=== PATIENT | female | born 1960 | race African-American/Black ===

== ENCOUNTER 2018-05-26 10:15 | Inpatient (IN) | payer OTHER ==
[~2018-05-26] VITALS: Ht 160 cm; Wt 72.1 kg
[2018-05-26] MEDS ORDERED: ONDANSETRON HCL 4MG/2ML INJ IV STA (10:25)
[2018-05-26] MEDS ORDERED: VISCOUS LIDOCAINE 2% 15 ML UDC PO ONE (10:30)
[2018-05-26] MEDS ORDERED: ASPIRIN 81MG TABLET PO ONE (10:30)
[2018-05-26] MEDS ORDERED: MAGNESIUM/ALUMINUM HYDROXIDE/SIMETHICONE 30ML UDC PO ONE (10:30)
[2018-05-26 11:18] LABS: BASOPHILS % 0.8 % (0.0-2.0); EOSINOPHILS % 1.1 % (0.0-5.0); HEMATOCRIT. 39.7 % (36.0-48.0); LYMPHOCYTES % 13.3 % (20.0-50.0); MEAN CORPUSCULAR VOLUME 91.4 fL (81.0-99.0); MEAN PLATELET VOLUME 8.4 fl (7.4-10.4); MONOCYTES % 6.4 % (2.0-8.0); NEUTROPHILS % 78.4 % (40.0-76.0); PLATELET 246 x1000/uL (130-400); RED BLOOD CELL COUNT 4.35 mill/uL (4.2-5.4); RED CELL DISTRIBUTION WIDTH 15.5 % (11.6-14.6)
[2018-05-26 11:22] LABS: CHLORIDE 94 mEq/L (98-107)
[2018-05-26] MEDS ORDERED: ACETAMINOPHEN 325MG TABLET PO PRN (13:30)
[2018-05-26] MEDS ORDERED: MAGNESIUM/ALUMINUM HYDROXIDE/SIMETHICONE 30ML UDC PO PRN (13:30)
[2018-05-26] MEDS ORDERED: ACETAMINOPHEN 650MG SUPP PR PRN (13:30)
[2018-05-26] MEDS ORDERED: DIPHENHYDRAMINE 50MG/ML VIAL IV PRN (13:30)
[2018-05-26] MEDS ORDERED: CLONIDINE 0.1MG TABLET PO PRN (13:30)
[2018-05-26] MEDS ORDERED: LORAZEPAM 0.5MG TABLET PO PRN (13:30)
[2018-05-26] MEDS ORDERED: GUAIFENESIN 200MG/10ML SUGAR FREE UDC PO PRN (13:30)
[2018-05-26] MEDS ORDERED: DOCUSATE SODIUM 100MG CAPSULE PO PRN (13:30)
[2018-05-26] MEDS ORDERED: ONDANSETRON HCL 4MG/2ML INJ IV PRN (13:30)
[2018-05-26] MEDS ORDERED: HYDROCODONE/ACETAMINOPHEN 5/325MG TABLET PO PRN (13:30)
[2018-05-26] MEDS ORDERED: IPRATROPIUM/ALBUTEROL 0.5-3(2.5)MG/3ML NEB INH PRN (13:30)
[2018-05-26 14:48] VITALS: BP 157/85
[2018-05-26] MEDS ORDERED: CARV6.2548 MT (17:33)
[2018-05-26] MEDS ORDERED: LISI40TA4 MT (17:33)
[2018-05-26] MEDS ORDERED: SUCR500T MT (17:34)
[2018-05-26 19:48] LABS: CREATINE KINASE 83 IU/L (26-192)
[2018-05-26 19:49] LABS: CREATINE KINASE MB FRACTION < 1.0 ng/mL (0.5-3.6)
[2018-05-26 20:00] VITALS: BP 129/83
[2018-05-26] MEDS: HEPARIN 5000 UNITS/ML VIAL SUBCUT SCH (20:14)
[2018-05-26 23:29] LABS: CREATINE KINASE 78 IU/L (26-192)
[2018-05-26 23:30] LABS: CREATINE KINASE MB FRACTION < 1.0 ng/mL (0.5-3.6)
[2018-05-27] VITALS (7 sets, daily range): BP systolic 107–163; BP diastolic 54–104
[2018-05-27 06:37] LABS: BASOPHILS % 0.6 % (0.0-2.0); CHLORIDE 94 mEq/L (98-107); EOSINOPHILS % 1.7 % (0.0-5.0); HEMOGLOBIN. 12.1 g/dL (12.0-16.0); LYMPHOCYTES % 20.2 % (20.0-50.0); MEAN CORPUSCULAR HEMOGLOBIN 30.2 pg (28.0-32.0); MEAN CORPUSCULAR VOLUME 92.2 fL (81.0-99.0); MONOCYTES % 7.8 % (2.0-8.0); NEUTROPHILS % 69.7 % (40.0-76.0); PLATELET 223 x1000/uL (130-400); RED BLOOD CELL COUNT 4.01 mill/uL (4.2-5.4); RED CELL DISTRIBUTION WIDTH 15.2 % (11.6-14.6)
[2018-05-27 06:46] LABS: LDL CHOLESTEROL 116 mg/dL (5-100)
[2018-05-27 06:47] LABS: HDL CHOLESTEROL 65 mg/dL (40-59); T4 FREE 1.21 ng/dL (0.76-1.46)
[2018-05-27] MEDS: HEPARIN 5000 UNITS/ML VIAL SUBCUT SCH ×2 (08:38→21:01)
[2018-05-27] MEDS: ASPIRIN 81MG EC TABLET PO SCH (08:38)
[2018-05-27] MEDS ORDERED: SODIUM POLYSTYRENE SULFONATE 15 G/60 ML BOT PO SCH (10:15)
[2018-05-27 12:12] LABS: CLARITY URINE TURBID (CLEAR); COLOR URINE YELLOW (YELLOW); KETONES URINE NEGATIVE (NEGATIVE); LEUKOCYTE ESTERASE URINE 3+ (NEGATIVE); NITRITE URINE NEGATIVE (NEGATIVE); OCCULT BLOOD URINE 3+ (NEGATIVE); PH URINE >=9.0 (4.5-8.0); PROTEIN URINE 3+ (NEGATIVE); SPECIFIC GRAVITY URINE 1.015 (1.005-1.030); UROBILINOGEN URINE 0.2 E.U./dL (0.2-1.0)
[2018-05-27 13:20] LABS: D-DIMER 0.75 mg/L FEU (<0.50)
[2018-05-27 13:27] LABS: *AMPHETAMINES SCREEN URINE NEGATIVE (NEGATIVE); *BARBITURATES SCREEN URINE NEGATIVE (NEGATIVE); *BENZODIAZEPINES SCREEN URINE NEGATIVE (NEGATIVE); *COCAINE SCREEN URINE NEGATIVE (NEGATIVE); METHADONE URINE SCREEN NEGATIVE (NEGATIVE); OPIATES URINE SCREEN NEGATIVE (NEGATIVE); PHENCYCLIDINE URINE SCREEN NEGATIVE (NEGATIVE)
[2018-05-27 13:28] LABS: CANNABINOID URINE SCREEN NEGATIVE (NEGATIVE)
[2018-05-27] MEDS ORDERED: CARVEDILOL 6.25 MG TABLET PO SCH (14:30)
[2018-05-27] MEDS ORDERED: ATORVASTATIN CALCIUM 20MG TABLET PO SCH (21:00)
[2018-05-27] MEDS: CARVEDILOL 6.25 MG TABLET PO SCH (21:02)
[2018-05-28] VITALS: BP 112/64
[2018-05-28] MEDS ORDERED: LEVOFLOXACIN 750MG PREMIX 150 ML IV SCH ×3 (01:00→02:00)
[2018-05-28 04:00] VITALS: BP 119/70
[2018-05-28 07:21] LABS: HEMATOCRIT 34.8 % (36.0-48.0); HEMOGLOBIN 11.1 g/dL (12.0-16.0); MEAN CORPUSCULAR HEMOGLOBIN 29.2 pg (28.0-32.0); MEAN CORPUSCULAR VOLUME 91.8 fL (81.0-99.0); PLATELET 210 x1000/uL (130-400); RED BLOOD CELL COUNT 3.79 mill/uL (4.2-5.4); RED CELL DISTRIBUTION WIDTH 15.3 % (11.6-14.6)
[2018-05-28 08:30] VITALS: BP 157/76
[2018-05-28] MEDS: ASPIRIN 81MG EC TABLET PO SCH (10:18)
[2018-05-28] MEDS: CARVEDILOL 6.25 MG TABLET PO SCH (10:18)
[2018-05-28] MEDS: HEPARIN 5000 UNITS/ML VIAL SUBCUT SCH (10:19)
[2018-05-28 12:15] VITALS: BP 119/67
[2018-05-28 13:28] VITALS: BP 119/67
[2018-05-29] MEDS ORDERED: LEVOFLOXACIN 500MG PREMIX 100 ML IV SCH (21:00)
== END 2018-05-28 13:50 | disposition home or self-care (01) | DRG 205 ==
LOC: ER 10:32 → EDBEDREQ 12:25 → ENRESERV 13:33 → 8WST 13:57
PROVIDERS: ADMIT Internal Medicine; ATTEND Internal Medicine
DX: M94.0 Chondrocostal junction syndrome [Tietze] (principal); N18.6 End stage renal disease; I42.9 Cardiomyopathy, unspecified; N39.0 Urinary tract infection, site not specified; I13.2 Hypertensive heart and chronic kidney disease with heart failure and with stage 5 chronic kidney disease, or end stage renal disease; E78.5 Hyperlipidemia, unspecified; I50.9 Heart failure, unspecified; E87.5 Hyperkalemia; R74.0 Nonspecific elevation of levels of transaminase and lactic acid dehydrogenase [LDH]; Z99.2 Dependence on renal dialysis; Z88.0 Allergy status to penicillin
CPT/HCPCS: 36415; 71045; 80048; 80061; 80305; 82550; 82553; 83880; 84439; 84443; 84484; 85027; 85379; 87077; 87186; 93005; 93306; 93970; 96374; 97162; 99285; J1200; J1644; J1956; J2405; J7040

== ENCOUNTER 2021-07-05 17:38 | Inpatient (IN) | payer OTHER ==
[~2021-07-05] VITALS: Ht 160 cm; Wt 72.1 kg
[~2021-07-05 17:38] MED LIST: CARV6.2548 MT; LISI40TA13 MT; SUCR500T MT
[2021-07-05] MEDS ORDERED: ONDANSETRON HCL 4MG/2ML INJ IV STA (17:46)
[2021-07-05] MEDS ORDERED: LABETALOL 5MG/ML SYR 20 MG/4 ML SYRINGE IV ONE (18:00)
[2021-07-05] MEDS ORDERED: ALBUTEROL (0.083%) 2.5MG/3ML NEB HHN STA (18:20)
[2021-07-05] MEDS ORDERED: IPRATROPIUM BROMIDE (0.02%) 0.5MG/2.5ML NEB HHN STA (18:20)
[2021-07-05 18:31] LABS: BASOPHILS % 0.9 % (0.0-2.0); HEMATOCRIT. 37.4 % (36.0-48.0); LYMPHOCYTES % 12.2 % (20.0-50.0); MEAN CORPUSCULAR HEMOGLOBIN 28.8 pg (28.0-32.0); MEAN CORPUSCULAR VOLUME 90.1 fL (81.0-99.0); MEAN PLATELET VOLUME 8.2 fl (7.4-10.4); MONOCYTES % 3.9 % (2.0-8.0); PLATELET 316 x1000/uL (130-400); RED BLOOD CELL COUNT 4.15 mill/uL (4.2-5.4); RED CELL DISTRIBUTION WIDTH 15.9 % (11.6-14.6)
[2021-07-05 18:40] LABS: PROTHROMBIN TIME 10.7 sec (9.6-11.0)
[2021-07-05 18:53] LABS: CHLORIDE 102 mEq/L (98-107)
[2021-07-05] MEDS ORDERED: VANCOMYCIN 1G PREMIX 200 ML IV SCH (19:45)
[2021-07-05] MEDS ORDERED: LEVOFLOXACIN 500MG PREMIX 100 ML IV ONE (19:45)
[2021-07-05 20:06] LABS: BG BASE EXCESS 8.9 mmol/L (-2.0-2.0); BG CARBOXYHEMOGLOBIN 0.6 % (0.5-1.5); BG DEOXYHEMOGLOBIN 22.3 % (0.0-5.0); BG FRACTION INSPIRED OXYGEN 21; BG HCO3 ACT 34.5 mmol/L (22.0-26.0); BG METHEMOGLOBIN 0.3 % (0.0-1.5); BG OXYGEN SATURATION 77.5 % (92.0-98.5); BG OXYHEMOGLOBIN 76.8 % (94.0-97.0); BG PCO2 52.2 mmHg (35.0-45.0); BG PH 7.438 (7.350-7.450); BG PO2 43.1 mmHg (75.0-100.0); BG TOTAL HEMOGLOBIN 11.1 g/dL (12.0-18.0); BG VENT MODE ROOM AIR
[2021-07-05] MEDS ORDERED: CARVEDILOL 6.25 MG TABLET PO ONE (21:15)
[2021-07-05] MEDS ORDERED: LISINOPRIL 40MG TABLET PO ONE (21:15)
[2021-07-05] MEDS ORDERED: DEXTROSE 50% WATER 50ML SYRINGE IV ONE (22:00)
[2021-07-05] MEDS ORDERED: SODIUM BICARBONATE 8.4% 1 MEQ/ML 50ML SYR IV ONE (22:00)
[2021-07-05] MEDS ORDERED: INSULIN REGULAR (HUMULIN R) 300UNITS/3ML VIAL IV ONE (22:00)
[2021-07-05 23:10] LABS: HEPATITIS B SURFACE ANTIGEN NEGATIVE
[2021-07-05 23:56] VITALS: BP 147/90
[2021-07-06] VITALS (14 sets, daily range): BP systolic 136–180; BP diastolic 74–100
[2021-07-06] MEDS: CLONIDINE 0.1MG TABLET PO PRN ×2 (01:13→17:13)
[2021-07-06] MEDS ORDERED: NON FORMULARY PATIENT HOME MED XX SCH (01:15)
[2021-07-06 02:12] LABS: BG SAMPLE SITE RT RADIAL
[2021-07-06 07:23] LABS: BASOPHILS % 0.4 % (0.0-2.0); EOSINOPHILS % 2.5 % (0.0-5.0); HEMATOCRIT. 32.8 % (36.0-48.0); HEMOGLOBIN. 10.6 g/dL (12.0-16.0); MEAN CORPUSCULAR HEMOGLOBIN 28.8 pg (28.0-32.0); MEAN CORPUSCULAR VOLUME 88.9 fL (81.0-99.0); MEAN PLATELET VOLUME 8.8 fl (7.4-10.4); NEUTROPHILS % 82.1 % (40.0-76.0); PLATELET 172 x1000/uL (130-400); RED BLOOD CELL COUNT 3.69 mill/uL (4.2-5.4); RED CELL DISTRIBUTION WIDTH 15.8 % (11.6-14.6)
[2021-07-06] MEDS: LISINOPRIL 40MG TABLET PO SCH (08:30)
[2021-07-06] MEDS: PANTOPRAZOLE 40MG DR TABLET PO SCH (08:30)
[2021-07-06] MEDS: ASPIRIN 81MG EC TABLET PO SCH (08:31)
[2021-07-06] MEDS: ENOXAPARIN 30MG/0.3ML SYR SUBCUT SCH (08:31)
[2021-07-06] MEDS: CARVEDILOL 6.25 MG TABLET PO SCH ×2 (08:31→20:52)
[2021-07-06] MEDS ORDERED: GABAPENTIN 100MG CAPSULE PO SCH (09:00)
[2021-07-06] MEDS ORDERED: LEVOFLOXACIN 250MG PREMIX 50 ML IV SCH (13:00)
[2021-07-06] MEDS ORDERED: HYDRALAZINE 20MG/ML VIAL IV PRN (13:15)
[2021-07-06] MEDS ORDERED: ONDANSETRON HCL 4MG/2ML INJ IV PRN (13:15)
[2021-07-06] MEDS ORDERED: IPRATROPIUM/ALBUTEROL 0.5-3(2.5)MG/3ML NEB HHN PRN (13:15)
[2021-07-06] MEDS ORDERED: BISACODYL 10MG SUPP PR PRN (13:15)
[2021-07-06] MEDS: AMLODIPINE 10MG TABLET PO SCH (13:33)
[2021-07-06] MEDS ORDERED: LOPERAMIDE 2MG/15ML UDC PO NR (16:30)
[2021-07-06] MEDS ORDERED: LOPERAMIDE HCL 2MG CAPSULE PO NR (16:30)
[2021-07-06] MEDS: GABAPENTIN 100MG CAPSULE PO SCH (21:53)
[2021-07-07] VITALS: BP 145/77
[2021-07-07 04:00] VITALS: BP 150/91
[2021-07-07] MEDS: ACETAMINOPHEN 325MG TABLET PO PRN ×2 (05:07→22:36)
[2021-07-07 05:27] LABS: BASOPHILS % 0.5 % (0.0-2.0); EOSINOPHILS % 3.9 % (0.0-5.0); HEMATOCRIT. 32.4 % (36.0-48.0); HEMOGLOBIN. 10.6 g/dL (12.0-16.0); LYMPHOCYTES % 11.6 % (20.0-50.0); MEAN CORPUSCULAR HEMOGLOBIN 29.2 pg (28.0-32.0); MEAN CORPUSCULAR VOLUME 89.3 fL (81.0-99.0); MEAN PLATELET VOLUME 8.6 fl (7.4-10.4); PLATELET 171 x1000/uL (130-400); RED BLOOD CELL COUNT 3.63 mill/uL (4.2-5.4); RED CELL DISTRIBUTION WIDTH 15.7 % (11.6-14.6)
[2021-07-07 08:00] VITALS: BP 156/73
[2021-07-07] MEDS: PANTOPRAZOLE 40MG DR TABLET PO SCH (08:04)
[2021-07-07] MEDS: CARVEDILOL 6.25 MG TABLET PO SCH ×2 (09:00→20:36)
[2021-07-07] MEDS: AMLODIPINE 10MG TABLET PO SCH (09:00)
[2021-07-07] MEDS: LISINOPRIL 40MG TABLET PO SCH (09:00)
[2021-07-07] MEDS: GABAPENTIN 100MG CAPSULE PO SCH ×2 (09:48→17:02)
[2021-07-07] MEDS: ASPIRIN 81MG EC TABLET PO SCH (09:49)
[2021-07-07] MEDS: ENOXAPARIN 30MG/0.3ML SYR SUBCUT SCH (09:49)
[2021-07-07] MEDS ORDERED: SODIUM POLYSTYRENE SULFONATE 15 G/60 ML BOT PO NR (11:15)
[2021-07-07 12:00] VITALS: BP 154/87
[2021-07-07] MEDS: CLONIDINE 0.1MG TABLET PO PRN (14:39)
[2021-07-07 16:00] VITALS: BP 133/85
[2021-07-07 20:00] VITALS: BP 128/67
[2021-07-08] VITALS: BP 145/78
[2021-07-08 04:00] VITALS: BP 154/79
[2021-07-08] MEDS: ACETAMINOPHEN 325MG TABLET PO PRN (04:16)
[2021-07-08 06:16] LABS: BASOPHILS % 0.7 % (0.0-2.0); EOSINOPHILS % 3.9 % (0.0-5.0); HEMOGLOBIN. 10.8 g/dL (12.0-16.0); LYMPHOCYTES % 13.9 % (20.0-50.0); MEAN CORPUSCULAR HEMOGLOBIN 29.3 pg (28.0-32.0); MEAN CORPUSCULAR VOLUME 87.3 fL (81.0-99.0); MEAN PLATELET VOLUME 8.1 fl (7.4-10.4); MONOCYTES % 8.3 % (2.0-8.0); NEUTROPHILS % 73.2 % (40.0-76.0); PLATELET 186 x1000/uL (130-400); RED BLOOD CELL COUNT 3.67 mill/uL (4.2-5.4); RED CELL DISTRIBUTION WIDTH 15.7 % (11.6-14.6)
[2021-07-08] MEDS: CLONIDINE 0.1MG TABLET PO PRN (06:41)
[2021-07-08 08:00] VITALS: BP 149/95
[2021-07-08] MEDS: CARVEDILOL 6.25 MG TABLET PO SCH (09:00)
[2021-07-08] MEDS: PANTOPRAZOLE 40MG DR TABLET PO SCH (09:57)
[2021-07-08] MEDS: ASPIRIN 81MG EC TABLET PO SCH (09:57)
[2021-07-08] MEDS: AMLODIPINE 10MG TABLET PO SCH (09:58)
[2021-07-08] MEDS: GABAPENTIN 100MG CAPSULE PO SCH (09:59)
[2021-07-08] MEDS: ENOXAPARIN 30MG/0.3ML SYR SUBCUT SCH (09:59)
[2021-07-08] MEDS: LISINOPRIL 40MG TABLET PO SCH (10:01)
[2021-07-08 12:00] VITALS: BP 154/79
[2021-07-08] MEDS ORDERED: LOSA50TA3 MT (13:44)
[2021-07-08] MEDS ORDERED: ASPI-1497 MT (13:44)
[2021-07-08] MEDS ORDERED: AMLO10TA4 MT (13:44)
[2021-07-08] MEDS ORDERED: LEVOFLOXACIN 250MG TABLET PO SCH (14:00)
[2021-07-08 14:41] VITALS: BP 145/95
[2021-07-09] MEDS ORDERED: FAMOTIDINE 20MG TABLET PO SCH (07:30)
== END 2021-07-08 16:10 | disposition home or self-care (01) | DRG 291 ==
LOC: ER 17:38 → MICUSO 21:06 → EDBEDREQTM 21:47 → EDBEDREQ 21:47 → ENRESERV 21:58 → 5EST 23:30
PROVIDERS: ADMIT Internal Medicine; ATTEND Internal Medicine
PROC: 5A1D70Z Performance of Urinary Filtration, Intermittent, Less than 6 Hours Per Day (ICD-10-PCS; principal; 2021-07-05)
PROC: 5A1D70Z Performance of Urinary Filtration, Intermittent, Less than 6 Hours Per Day (ICD-10-PCS; 2021-07-07)
DX: I13.2 Hypertensive heart and chronic kidney disease with heart failure and with stage 5 chronic kidney disease, or end stage renal disease (principal); J96.01 Acute respiratory failure with hypoxia; I50.23 Acute on chronic systolic (congestive) heart failure; N18.6 End stage renal disease; J96.02 Acute respiratory failure with hypercapnia; D72.829 Elevated white blood cell count, unspecified; D64.9 Anemia, unspecified; E87.5 Hyperkalemia; I16.0 Hypertensive urgency; E78.5 Hyperlipidemia, unspecified; Z20.822 Contact with and (suspected) exposure to COVID-19; I34.0 Nonrheumatic mitral (valve) insufficiency; Z79.899 Other long term (current) drug therapy; Z99.2 Dependence on renal dialysis; Z82.49 Family history of ischemic heart disease and other diseases of the circulatory system; Z86.73 Personal history of transient ischemic attack (TIA), and cerebral infarction without residual deficits; Z88.0 Allergy status to penicillin
CPT/HCPCS: 36415; 36600; 71045; 78580; 80048; 80053; 82375; 82805; 82962; 84132; 84145; 84484; 85025; 86705; 86709; 86803; 87340; 93005; 93306; 93970; 94640; 97162; 99291; J1650; J1815; J1956; J2405; J3370; J3490